=== PATIENT | male | born 1950 | race Caucasian/White ===

== ENCOUNTER 2018-01-20 08:09 | Emergency (ER) | payer BC ==
[2018-01-20 08:25] VITALS: BP 136/73
--- NOTE | 2018-01-20 08:46 | UC ---
Respiratory Complaint HPI - HPI Summary HPI Summary: 68 yo WM p/w worsening cough with increasing productive green sputum x 1 2-3 weeks after a bout of having the flu. C/o intermittent f/c/mild SOB - History of Current Complaint Chief Complaint: UCRespiratory Stated Complaint: CONGESTION Time Seen by Provider: 01/20/18 08:24 Hx Obtained From: Patient Onset/Duration: Lasting Weeks Timing: Constant Severity Initially: Moderate Pain Intensity: 0 Character: Cough: Productive Aggravating Factors: Nothing Alleviating Factors: Nothing Associated Signs And Symptoms: Positive: Negative - Allergies/Home Medications Allergies/Adverse Reactions: Allergies Allergy/AdvReac Type Severity Reaction Status Date / Time sulfamethoxazole Allergy Rash Verified 01/20/18 08:25 [From Bactrim] trimethoprim [From Bactrim] Allergy Rash Verified 01/20/18 08:25 MOLD Allergy Runny Nose Uncoded 11/03/16 06:25 Home Medications: Home Medications Docusate CAP* [Colace Cap*] 100 mg PO DAILY 01/20/18 [History Confirmed 01/20/18 ] PMH/Surg Hx/FS Hx/Imm Hx - Additional Past Medical History Additional PMH: none Previously Healthy: Yes Other History Of: Negative For: Anticoagulant Therapy - Surgical History Surgical History: Yes Surgery Procedure, Year, and Place: powerport (removed). R hip replacement - Social History Alcohol Use: Rare Alcohol Amount: 1/2 BEER 2 TIMES PER WEEK Substance Use Type: None Smoking Status (MU): Never Smoked Tobacco - Immunization History Most Recent Influenza Vaccination: 2014 Most Recent Tetanus Shot: UNKNOWN Most Recent Pneumonia Vaccination: NEVER Review of Systems Constitutional: Chills Skin: Negative Eyes: Negative ENT: Sinus Pain/Tenderness Respiratory: Cough Cardiovascular: Negative Gastrointestinal: Negative Genitourinary: Negative Motor: Negative Neurovascular: Negative Musculoskeletal: Negative Neurological: Negative Psychological: Negative All Other Systems Reviewed And Are Negative: Yes Physical Exam Triage Information Reviewed: Yes Vital Signs: Initial Vital Signs Temp 37.1 C 01/20/18 08:20 Pulse 64 01/20/18 08:20 Resp 16 01/20/18 08:20 BP 136/73 01/20/18 08:20 Pulse Ox 95 01/20/18 08:20 Eye Exam: Normal ENT Exam: Normal Dental Exam: Normal Neck exam: Normal Neck: Positive: 1 Respiratory: Positive: Rhonchi, Other: - coarse BS B/L. Negative: Crackles, Stridor, Wheezing Cardiovascular Exam: Normal Abdominal Exam: Normal Musculoskeletal Exam: Normal Neurological Exam: Normal Psychological Exam: Normal Skin Exam: Normal UC Diagnostic Evaluation - Laboratory O2 Sat by Pulse Oximetry: 95 Respiratory Course/Dx - Differential Dx/Diagnosis Provider Diagnoses: bronchitis Discharge - Discharge Plan Condition: Stable Disposition: HOME Prescriptions: Azithromycin TAB* [Zithromax TAB (Z-SANDOVAL) 250 mg #6 tabs] 2 tab PO .TODAY, THEN 1 DAILY #1 sandoval Patient Education Materials: Acute Bronchitis (ED) Referrals: Silvano Khanna MD [Primary Care Provider] - Additional Instructions: Take antibiotic as directed and rock picker Mucinex DM over the counter for cough
== END 2018-01-20 08:44 | disposition home or self-care (01) ==
LOC: UCEAST 08:09
DX: J40 Bronchitis, not specified as acute or chronic (principal); Z88.3 Allergy status to other anti-infective agents
CPT/HCPCS: 99212; G0463

== ENCOUNTER 2019-03-05 07:01 | Emergency (ER) | payer BC, OTHER ==
--- NOTE | 2019-03-05 07:05 | UC ---
Respiratory Complaint HPI - HPI Summary HPI Summary: Patient is a 69 year old gentleman , who present today to the urgent care with cough and congestion for past 1 month He initially felt like a sinus congestion . Now he feels that he is coughing yellow phlegm and it's not going away. Reports postnasal drip. Denies any fevers or chills at home but feels tired. Denies any chest pain or shortness of breath . Denies any abdominal pain , nausea or vomiting , diarrhea or constipation. Patient tried over the counter medication without much relief. - History of Current Complaint Stated Complaint: COUGH CONGESTION Time Seen by Provider: 03/05/19 07:03 Hx Obtained From: Patient - Allergies/Home Medications Allergies/Adverse Reactions: Allergies Allergy/AdvReac Type Severity Reaction Status Date / Time sulfamethoxazole Allergy Rash Verified 01/20/18 08:25 [From Bactrim] trimethoprim [From Bactrim] Allergy Rash Verified 01/20/18 08:25 MOLD Allergy Runny Nose Uncoded 11/03/16 06:25 PMH/Surg Hx/FS Hx/Imm Hx - Additional Past Medical History Additional PMH: CLL, in remission,diagnosed 8 years ago Paroxysmal atrial fibrillation Anemia Previously Healthy: Yes Other History Of: Negative For: Anticoagulant Therapy - Surgical History Surgical History: Yes Surgery Procedure, Year, and Place: powerport (removed). R hip replacement - Social History Alcohol Use: Rare Alcohol Amount: 1/2 BEER 2 TIMES PER WEEK Substance Use Type: None Smoking Status (MU): Never Smoked Tobacco - Immunization History Most Recent Influenza Vaccination: 2014 Most Recent Tetanus Shot: UNKNOWN Most Recent Pneumonia Vaccination: NEVER Review of Systems All Other Systems Reviewed And Are Negative: Yes Constitutional: Positive: Fatigue Skin: Positive: Negative Eyes: Positive: Negative ENT: Positive: Sinus Congestion Respiratory: Positive: Cough - greenish phlegm. Negative: Shortness Of Breath Cardiovascular: Positive: Negative Gastrointestinal: Positive: Negative Genitourinary: Positive: Negative Motor: Positive: Negative Neurovascular: Positive: Negative Musculoskeletal: Positive: Negative Neurological: Positive: Negative Psychological: Positive: Negative Is Patient Immunocompromised?: No Physical Exam - Summary Physical Exam Summary: Physical Exam: Const: Appears well. No signs of apparent distress present. Alert and oriented x 3. Musculo: Walks with a normal gait. Head/Face: Atraumatic, normocephalic on inspection. Eyes: EOMI and PERRLA in both eyes. Conjunctivae clear. No discharge noted ENT: Hearing normal, TM normal appearing bilaterally No tenderness to palpation on maxillary and frontal sinus. Minimal pharyngeal erythema without any exudates . Uvula is midline. No cervical or submandibular lymphadenopathy noted. Respiratory: Respirations are unlabored. Lungs clear to auscultation bilaterally, no wheezing , rhonchi or rales noted . CVS: Regular rate and Rhythm, S1S2 normal , no murmurs identified. Extremities: Peripheral circulation is grossly normal. Pulses 2+ Abdomen : Soft non tender , nondistended , Bowel sounds present . No guarding , rebound tenderness or rigidity noted. Skin: No lesions or rash located on the upper extremities or on the lower extremities. Neuro: Cranial nerves II to XII intact, motor and sensory intact. DTR Intact bilaterally. Mood is normal. Affect is normal. Triage Information Reviewed: Yes Vital Signs Reviewed: Yes Respiratory Course/Dx - Course Course Of Treatment: During the visit today, we discussed the findings and further plan and treated with antibiotics since his symptoms have been going on for quite some time. I will prescribe the medication to the pharmacy . Patient expressed understanding . - Differential Dx/Diagnosis Provider Diagnosis: Atypical pneumonia Discharge - Sign-Out/Discharge Documenting (check all that apply): Patient Departure All imaging exams completed and their final reports reviewed: No Studies - Discharge Plan Condition: Stable Disposition: HOME Prescriptions: Azithromyxin SANDOVAL (NF) [Z-Sandoval (Zithromax) 250 mg tabs #6] 2 tab PO .TODAY, THEN 1 DAILY #6 tab Patient Education Materials: Pneumonia (ED) Referrals: Silvano Khanna MD [Primary Care Provider] - [facility] [place] [facility] [Outside] - 1 Week Additional Instructions: Please start taking the medication as prescribed to the pharmacy . Keep yourself hydrated For congestion he can take Claritin-D [id number] Follow up with your primary care doctor in 1 week Patients blood pressure slightly high in Urgent care today , plan follow up with PCP for better control within 1 month Return to Urgent care / ER if symptoms get worse. - Billing Disposition and Condition Condition: STABLE Disposition: Home
[2019-03-05 07:14] VITALS: BP 134/71
== END 2019-03-05 07:42 | disposition home or self-care (01) ==
LOC: UCEAST 07:01
DX: J18.9 Pneumonia, unspecified organism (principal); C91.11 Chronic lymphocytic leukemia of B-cell type in remission; I48.91 Unspecified atrial fibrillation; D64.9 Anemia, unspecified; Z96.641 Presence of right artificial hip joint; Z88.2 Allergy status to sulfonamides
CPT/HCPCS: 99212; G0463